=== PATIENT | male | born 1960 | race American Indian/Alaskan Native ===

== ENCOUNTER 2017-12-24 11:16 | Emergency (ER) | payer OTHER, BC, MEDICARE ==
[2017-12-24 11:25] VITALS: BP 135/83
[2017-12-24] MEDS ORDERED: MOTRIN PO ONE (12:09)
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
--- NOTE | 2017-12-24 13:19 | XRay Report ---
LUMBOSACRAL SPINE, 3 VIEWS: History: Back pain Findings: There is mild levoscoliosis in the lumbar region. The vertebral bodies, disk spaces and posterior elements are intact. No compression deformity or malalignment. The SI joints are symmetric and unremarkable. Impression: Mild scoliosis. No evidence for acute injury to the lumbar spine.
--- NOTE | 2017-12-24 13:20 | XRay Report ---
CERVICAL SPINE, 3 views: History: Neck pain. Findings: The vertebral bodies, disk spaces, posterior elements and prevertebral soft tissues are intact. The dens is intact. No acute fracture or malalignment is identified. Moderate degenerative disc disease is identified at C4-5, C5-6 and C6-7. Impression: Cervical spondylosis. No evidence for acute injury to the cervical spine.
== END 2017-12-24 13:31 | disposition home or self-care (01) ==
LOC: ED 11:16
DX: S13.4XXA Sprain of ligaments of cervical spine, initial encounter (principal); S39.012A Strain of muscle, fascia and tendon of lower back, initial encounter; F17.200 Nicotine dependence, unspecified, uncomplicated; G89.29 Other chronic pain; V87.7XXA Person injured in collision between other specified motor vehicles (traffic), initial encounter; Y93.89 Activity, other specified; Y99.8 Other external cause status; Y92.410 Unspecified street and highway as the place of occurrence of the external cause
CPT/HCPCS: 72040; 72100; 99283